=== PATIENT | female | born 1975 | race Two or more races ===

== ENCOUNTER 2017-08-13 06:37 | Emergency (ER) | payer OTHER ==
[~2017-08-13] VITALS: Ht 154.9 cm; Wt 79.4 kg
[~2017-08-13 06:37] MED LIST: AUGMENTIN 125-150 ML PO; LEVSIN0.125 MG PO; ULTRACET PO
[2017-08-13] MEDS ORDERED: ZANTAC150 MG PO (11:04)
[2017-08-13] MEDS ORDERED: KETO10TA2 PO (11:04)
[2017-08-13] MEDS ORDERED: INTESTINEX680 M1 PO (11:04)
== END 2017-08-13 11:25 | disposition home or self-care (01) ==
LOC: ER 06:37
DX: R10.32 Left lower quadrant pain (principal)

== ENCOUNTER 2018-10-06 12:08 | Emergency (ER) | payer OTHER ==
[~2018-10-06] VITALS: Ht 154.9 cm; Wt 67.1 kg
[~2018-10-06 12:08] MED LIST changes: +INTESTINEX680 M1 PO; +KETO10TA2 PO; +ZANTAC150 MG PO
== END 2018-10-06 19:45 | disposition home or self-care (01) ==
LOC: ER 12:08
DX: K58.9 Irritable bowel syndrome, unspecified (principal)

== ENCOUNTER 2023-10-27 14:49 | Emergency (ER) | payer OTHER ==
[~2023-10-27] VITALS: Ht 154.9 cm; Wt 86.2 kg
[~2023-10-27 14:49] MED LIST changes: +COZAAR100 MG; +PROTONIX20 MG
[2023-10-27] MEDS ORDERED: PEPCID AC20 MG (15:51)
[2023-10-27] MEDS ORDERED: CARAFATE1 GM (15:51)
[2023-10-27] MEDS ORDERED: PREVACID30 MG (15:52)
[2023-10-27] MEDS ORDERED: AVAPRO150 MG (15:52)
[2023-10-27 16:54] LABS: HEMATOCRIT 40.9 % (36.0-45.00); HEMOGLOBIN 14.3 g/dL (12.0-15.00); MEAN CELL VOLUME 90.3 fL (80.00-100.00); MEAN CORPUSCULAR HEMOGLOBIN 31.6 pg (27.00-32.0); MEAN CORPUSCULAR HGB CONC 35.1 g/dl (32.0-36.0); PLATELET COUNT 320 K/uL (150-450); RED BLOOD COUNT 4.53 M/uL (4.00-6.00); RED CELL DISTRIBUTION WIDTH 14.2 % (11.5-14.5)
[2023-10-27 17:14] LABS: PH,URINE 6.5 (5.0-8.0); URINE APPEARANCE Cloudy; URINE BILIRRUBIN Negative (NEGATIVE); URINE BLOOD Negative; URINE COLOR Yellow; URINE GLUCOSE Negative (NEGATIVE); URINE KETONE Negative (NEGATIVE); URINE LEUKOCYTE Negative; URINE NITRATE Negative; URINE PROTEIN Negative (NEGATIVE); URINE UROBILINOGEN 0.2 E.U./dl
[2023-10-27 17:15] LABS: URINE BACTERIA 676.3 uL (0.0-1933); URINE EPITHELIAL CELLS 9.8 uL (0.0-38.8); URINE RBC 2.4 uL (0.0-20.8); URINE WBC 2.4 uL (0.0-23.2)
[2023-10-27 17:20] LABS: CALCIUM 9.4 mg/dL (8.5-10.1); CREATININE SERUM 0.83 mg/dL (0.55-1.02); GFR 73.37; POTASSIUM 3.82 mEq/L (3.5-5.1)
== END 2023-10-27 17:48 | disposition home or self-care (01) ==
LOC: ER 14:49
PROVIDERS: General Practice
DX: M79.2 Neuralgia and neuritis, unspecified (principal); I10 Essential (primary) hypertension

== ENCOUNTER 2024-04-18 13:33 | Emergency (ER) | payer OTHER ==
[~2024-04-18] VITALS: Ht 154.9 cm; Wt 81.2 kg
[~2024-04-18 13:33] MED LIST changes: +AVAPRO150 MG; +CARAFATE1 GM; +PEPCID AC20 MG; +PREVACID30 MG
[2024-04-18] MEDS ORDERED: KETOROLAC TROMETHAMINE 15 MG VIAL IV STA (16:16)
[2024-04-18] MEDS ORDERED: FAMOTIDINE/PF 20 MG/2 ML VIAL IV PUSH STA (16:16)
[2024-04-18] MEDS ORDERED: SODIUM CHLORIDE 0.45 % 500 ML IV STA (16:17)
[2024-04-18] MEDS ORDERED: FAMOTIDINE/PF 20 MG/2 ML VIAL ONE (16:24)
[2024-04-18] MEDS ORDERED: KETOROLAC TROMETHAMINE 30 MG VIAL ONE (16:24)
[2024-04-18] MEDS ORDERED: ENALAPRILAT DIHYDRATE 1.25 MG/ML VIAL IV STA (16:46)
[2024-04-18 16:51] LABS: HEMATOCRIT 41.4 % (36.0-45.00); MEAN CELL VOLUME 90.7 fL (80.00-100.00); MEAN CORPUSCULAR HEMOGLOBIN 30.6 pg (27.00-32.0); MEAN CORPUSCULAR HGB CONC 33.8 g/dl (32.0-36.0); PLATELET COUNT 341 K/uL (150-450); RED BLOOD COUNT 4.56 M/uL (4.00-6.00); RED CELL DISTRIBUTION WIDTH 15.3 % (11.5-14.5)
[2024-04-18] MEDS ORDERED: ENALAPRILAT DIHYDRATE 1.25 MG/ML VIAL IV ONE (16:52)
[2024-04-18 17:03] LABS: PH,URINE 5.5 (5.0-8.0); URINE APPEARANCE Turbid; URINE BILIRRUBIN Small (NEGATIVE); URINE BLOOD Large; URINE COLOR Red; URINE GLUCOSE Negative (NEGATIVE); URINE KETONE Negative (NEGATIVE); URINE LEUKOCYTE Moderate; URINE NITRATE Negative; URINE UROBILINOGEN 0.2 E.U./dl
[2024-04-18 17:04] LABS: URINE BACTERIA 2460.1 uL (0.0-1933); URINE EPITHELIAL CELLS 13.4 uL (0.0-38.8); URINE WBC 240.3 uL (0.0-23.2)
[2024-04-18 17:14] LABS: CALCIUM 8.9 mg/dL (8.5-10.1); CREATININE SERUM 0.98 mg/dL (0.55-1.02); GFR 60.57; POTASSIUM 3.94 mEq/L (3.5-5.1)
[2024-04-18 17:17] LABS: URINE PROTEIN 100 (NEGATIVE)
[2024-04-18 17:18] LABS: URINE CAST 0.24 uL (0.0-1.40); URINE RBC > 10558.9 uL (0.0-20.8)
== END 2024-04-18 21:59 | disposition home or self-care (01) ==
LOC: ER 13:36
PROVIDERS: Emergency Medicine
DX: R07.89 Other chest pain (principal); R10.9 Unspecified abdominal pain; N39.0 Urinary tract infection, site not specified; R16.0 Hepatomegaly, not elsewhere classified
CPT/HCPCS: 36415; 71046; 74176; 96365; 99284; J1885; J3490

== ENCOUNTER 2025-03-27 20:04 | Emergency (ER) | payer OTHER ==
[~2025-03-27] VITALS: Ht 154.9 cm; Wt 72.6 kg
[2025-03-27] MEDS ORDERED: NEXIUM40 M1 (20:49)
[2025-03-27] MEDS ORDERED: IRBESARTAN-HCT1 EAC1 (20:50)
[2025-03-27] MEDS ORDERED: FAMOTIDINE/PF 20 MG/2 ML VIAL IV PUSH STA (23:17)
[2025-03-27] MEDS ORDERED: KETOROLAC TROMETHAMINE 30 MG VIAL IV STA (23:18)
[2025-03-28 00:21] LABS: BASO % 0.4 % (0.1-1.2); EOS # 0.06 (0.04-0.54); EOS % 1.3 % (0.7-7.0); LYMPH # 1.21 (1.18-3.74); LYMPH % 25.3 % (19.3-53.1); MEAN PLATELET VOLUME 9.50 fl (9.4-12.4); MONO # 0.34 (0.24-0.82); MONO % 7.1 % (4.7-12.5); NEUT # 3.14 (1.56-6.13); NEUT % 65.7 % (34.0-71.1); RED CELL DISTRIBUTION WIDTH 13.6 % (11.6-14.4)
[2025-03-28 02:07] LABS: BUN CREA RATIO 7.0 (7.0-25.0); CREATININE SERUM 0.7 mg/dL (0.55-1.02); GFR 88.94; GLUCOSE FASTING 84.0 mg/dL (65-100); OSMOLALITY SERUM 281.0 MOSM/KG (275-295)
[2025-03-28] MEDS ORDERED: LEVSIN/SL0.125 MG SL (04:42)
== END 2025-03-28 04:55 ==
LOC: ER 20:05
PROVIDERS: General Practice
DX: R10.13 Epigastric pain (principal); R10.32 Left lower quadrant pain; I10 Essential (primary) hypertension